=== PATIENT | male | born 1965 | race Caucasian/White ===

== ENCOUNTER → 2018-06-21 | Emergency (ER) | payer OTHER ==
[~2018-06-21] VITALS: Ht 205.7 cm; Wt 136.1 kg
[~2018-06-21] MED LIST: ASPIRIN81 MG PO; ELIQUIS5 MG PO; FUROSEMIDE40 MG PO; METOPROLOL TAR100 MG PO; NORVASC10 MG PO; ZESTRIL5 MG PO
--- NOTE | 2018-06-21 20:53 | EKG ---
[facility] [address] [facility] [place], [place] [address] Signed Atrial fibrillation Rightward axis Abnormal ECG No previous ECGs available Confirmed by KHANH CHUNG DO ([id number]) on 06/21/2018 8:53:07 PM Electronically Signed By: KHANH CHUNG DO 06/21/182052 PATIENT NAME: FLORENTINO ALFRED Electrocardiogram DATE OF : 61 PHYSICIAN: KHANH CHUNG DO REPORT #: [id number] REPORT IS CONFIDENTIAL AND NOT TO BE RELEASED WITHOUT AUTHORIZATION
== END ==
LOC: ED 20:35
DX: R07.89 Other chest pain (principal); I48.91 Unspecified atrial fibrillation; F17.200 Nicotine dependence, unspecified, uncomplicated; Z79.899 Other long term (current) drug therapy; Z79.82 Long term (current) use of aspirin
CPT/HCPCS: 71045; 80053; 84484; 85025; 93005; 93010; 96374; 99285; J1885

== ENCOUNTER 2023-08-15 21:17 | Emergency (ER) | payer SELFPAY ==
[~2023-08-15] VITALS: Ht 205.7 cm; Wt 104.3 kg
[2023-08-15 21:51] LABS: BASOPHILS 3.1 % (0-2); HEMOGLOBIN 15.4 g/dL (12.0-18.0); LYMPHOCYTES 32.2 % (24-44); MCH 28.4 (27-36); MCHC 33.6 g/dl (30-36); MCV 84.7 fl (81-99); NEUTROPHILS 54.7 % (39-80); PLATELET COUNT 102 K/uL (140-440); RBC 5.42 M/ul (4.3-5.7); RDW 19.4 (10.5-15.0)
[2023-08-15 22:05] LABS: BILIRUBIN, URINE NEGATIVE (negative); BLOOD/HGB, URINE NEGATIVE (Negative); KETONE, URINE NEGATIVE (Negative); LEUK ESTERASE, URINE NEGATIVE (negative); NITRITE, URINE NEGATIVE (negative); PH, URINE 5.5 (5-7)
[2023-08-15 22:10] LABS: EPITHELIAL CELLS, URINE SQUAMOUS 1+ /lpf (0-1+)
[2023-08-15 22:11] LABS: BACTERIA, URINE RARE /hpf (negative); CASTS, URINE NONE SEEN \\lpf; CRYSTALS, URINE NONE SEEN (0-1+); RED BLOOD CELLS, URINE 0-1 /hpf (0-5); REFLEX CULTURE, URINE No (No)
[2023-08-15 22:12] LABS: ALBUMIN 3.9 g/dL (3.4-5.0); ALBUMIN/GLOBULIN RATIO 1.3 (1.1-2.4); ANION GAP 13.1 (7-21); BUN/CREATININE RATIO 26.66 (6.0-28.6); CALCIUM 8.5 mg/dL (8.5-10.1); CREATININE, SERUM 1.35 mg/dL (0.70-1.30); MAGNESIUM 2.2 mg/dL (1.8-2.4); POTASSIUM 4.1 mmol/L (3.5-5.1); PROTEIN, TOTAL 6.9 g/dL (6.4-8.2)
[2023-08-15 22:36] VITALS: BP 101/69
--- NOTE | 2023-08-16 22:43 | EKG ---
[facility] [address] [place] [address] Signed Atrial fibrillation Abnormal ECG When compared with ECG of 21-JUN-2018 20:37, No significant change was found Confirmed by Larissa Benton MD () on 08/16/2023 10:43:14 PM Electronically Signed By: LARISSA BENTON MD 08/16/23 2243 PATIENT NAME: FLORENTINO ALFRED Electrocardiogram DATE OF : 61 PHYSICIAN: LARISSA BENTON MD REPORT #: [id number] REPORT IS CONFIDENTIAL AND NOT TO BE RELEASED WITHOUT AUTHORIZATION
== END 2023-08-15 22:37 | disposition home or self-care (01) ==
LOC: ED 21:17
PROVIDERS: Emergency Medicine
DX: I48.91 Unspecified atrial fibrillation (principal); I50.9 Heart failure, unspecified; F17.200 Nicotine dependence, unspecified, uncomplicated; Z79.899 Other long term (current) drug therapy
CPT/HCPCS: 36415; 51798; 71045; 80053; 81001; 83735; 84484; 85025; 93005; 93010; 99285-25

== ENCOUNTER 2024-09-30 14:24 | Emergency (ER) | payer OTHER ==
[~2024-09-30] VITALS: Ht 205.7 cm; Wt 123.4 kg
[2024-09-30] MEDS ORDERED: IBUPROFEN800 MG PO (14:54)
[2024-09-30] MEDS ORDERED: LO-DOSE ASPIRIN81 MG PO (14:54)
[2024-09-30] MEDS ORDERED: MIRALAX17 GM PO (14:55)
[2024-09-30] MEDS ORDERED: CENTANY AT1 EACH TOP (14:55)
[2024-09-30] MEDS ORDERED: TORSEMIDE20 MG PO (14:56)
[2024-09-30] MEDS ORDERED: ACETAMINOPHEN325 M1 PO (14:56)
[2024-09-30] MEDS ORDERED: VENTOLIN HFA18 GM INH (14:57)
[2024-09-30] MEDS ORDERED: LIPITOR10 MG PO (14:57)
[2024-09-30] MEDS ORDERED: PROTONIX20 MG PO (14:58)
[2024-09-30] MEDS ORDERED: FLOMAX0.4 MG PO (14:58)
[2024-09-30 16:26] VITALS: BP 143/92
== END 2024-09-30 16:24 | disposition home or self-care (01) ==
LOC: ED 14:24
DX: S52.571A Other intraarticular fracture of lower end of right radius, initial encounter for closed fracture (principal); X58.XXXA Exposure to other specified factors, initial encounter; I50.9 Heart failure, unspecified; F17.200 Nicotine dependence, unspecified, uncomplicated; Z79.82 Long term (current) use of aspirin; Z79.899 Other long term (current) drug therapy
CPT/HCPCS: 29125; 73110; 99283